=== PATIENT | female | born 1995 | race Two or more races ===

== ENCOUNTER → 2024-02-02 14:59 | Outpatient (REF) | payer OTHER, SELFPAY | LOC: PNTC 14:59 | PROVIDERS: ATTENDING PHYSICIAN Obstetrics & Gynecology | DX: Q79.60 Ehlers-Danlos syndrome, unspecified (principal); O99.111 Other diseases of the blood and blood-forming organs and certain disorders involving the immune mechanism complicating pregnancy, first trimester | CPT/HCPCS: 76805 ==

== ENCOUNTER → 2024-02-29 06:58 | Outpatient (REF) | payer OTHER, SELFPAY | LOC: PNTC 06:58 | PROVIDERS: ATTENDING PHYSICIAN Obstetrics & Gynecology | DX: Q79.60 Ehlers-Danlos syndrome, unspecified (principal) | CPT/HCPCS: 76811; 76817 ==

== ENCOUNTER → 2024-03-28 13:32 | Outpatient (REF) | payer OTHER, SELFPAY | LOC: PNTC 13:32 | PROVIDERS: ATTENDING PHYSICIAN Obstetrics & Gynecology | DX: Q79.60 Ehlers-Danlos syndrome, unspecified (principal); O43.119 Circumvallate placenta, unspecified trimester | CPT/HCPCS: 76816; 76817 ==

== ENCOUNTER → 2024-05-23 06:54 | Outpatient (REF) | payer OTHER, SELFPAY | LOC: PNTC 06:54 | PROVIDERS: ATTENDING PHYSICIAN Obstetrics & Gynecology | DX: O43.119 Circumvallate placenta, unspecified trimester (principal); Q79.60 Ehlers-Danlos syndrome, unspecified | CPT/HCPCS: 76816 ==

== ENCOUNTER → 2024-06-20 07:00 | Outpatient (REF) | payer OTHER, SELFPAY | LOC: PNTC 07:00 | PROVIDERS: ATTENDING PHYSICIAN Obstetrics & Gynecology | DX: Q79.60 Ehlers-Danlos syndrome, unspecified (principal); O43.119 Circumvallate placenta, unspecified trimester | CPT/HCPCS: 76816 ==

== ENCOUNTER 2024-07-10 03:47 | Inpatient (IN) | payer OTHER, SELFPAY ==
[2024-07-10 03:56] VITALS: BMI 27.6
[2024-07-10 04:14] VITALS: BP 125/88
[2024-07-10] MEDS: LR 1000 IV ×2 (06:40→17:42)
[2024-07-10] MEDS: PROTONIX 40 MG PO (07:21)
[2024-07-10 07:43] LABS: % Basophils 0.4 % (0-2); % Immature Granulocytes 0.4 % (0-0.5); % Lymphocytes 20.9 % (20.5-51.1); % Monocytes 5.6 % (1.7-9.3); % Neutrophils 71.7 % (42.2-75.2); Absolute Eosinophils 0.1 10^3/uL (0-0.7); Absolute Lymphocytes 1.6 10^3/uL (1.2-3.4); Absolute Monocytes 0.4 10^3/uL (0.1-0.6); Absolute Neutrophils 5.5 10^3/uL (1.4-6.5); Hematocrit 36.9 % (37.0-47.0); Hemoglobin 12.8 g/dL (12.0-16.0); Mean Corp Hgb Conc. 34.7 g/dL (33.0-37.0); Mean Corpuscular Hgb 28.5 pg (27.0-31.0); Mean Corpuscular Volume 82.2 fL (81.0-99.0); Mean Platelet Volume 10.7 fL (7.4-10.4); Nucleated Red Blood Cells % 0 %; Platelet Count 191 10^3/uL (130-400); Red Blood Cell Count 4.49 10^6/uL (4.20-5.40); Red Cell Dist. Width 13.5 % (11.5-14.5); White Blood Cell Count 7.7 10^3/uL (4.8-10.8)
[2024-07-10] MEDS: SUBLIMAZE 100 MCG EPIDURAL (11:59)
[2024-07-10] MEDS: FENTANYL/BUPIVACAINE 100 EPIDURAL ×2 (12:05→19:02)
[2024-07-10] MEDS: PITOCIN 30 UNITS/NSS 500 ML IV ×2 (13:33→22:39)
[2024-07-10] MEDS: ZOFRAN 4 MG IV (17:42)
[2024-07-11] MEDS: TYLENOL 650 MG PO ×3 (02:38→12:30)
[2024-07-11 05:14] LABS: Hematocrit 31.5 % (37.0-47.0); Hemoglobin 11.1 g/dL (12.0-16.0)
[2024-07-11] MEDS: PRENATAL PLUS 1 TABLET PO (08:39)
[2024-07-11] MEDS: SENOKOT-S 1 TABLET PO (08:39)
[2024-07-11] MEDS: PROTONIX 20 MG PO (09:59)
[2024-07-11 12:21] LABS: Syphilis/T. pallidum Ab Reflex Negative (Negative)
[2024-07-11] MEDS: MOTRIN 600 MG PO ×2 (16:56→23:19)
--- NOTE | 2024-07-12 02:49 | DOWNTIME ---
There was a [email or web address] Downtime on 07/12/2024 from 0100 to 07/12/2023 at 0235 . Downtime documentation of patient's care, including medication administrations, has been reconciled in the electronic record per guidelines. Refer to the
patient's paper chart under the miscellaneous tab to see printed paper medication records and downtime forms.
[2024-07-12] MEDS: PRENATAL PLUS 1 TABLET PO (08:27)
[2024-07-12] MEDS: PROTONIX 20 MG PO (08:27)
[2024-07-12] MEDS: SENOKOT-S 1 TABLET PO (08:28)
[2024-07-12] MEDS: MOTRIN 600 MG PO (08:28)
== END 2024-07-12 15:21 | disposition home or self-care (01) | DRG 807 ==
LOC: LDRP 03:47
PROVIDERS: Obstetrics & Gynecology; ADMITTING PHYSICIAN Obstetrics & Gynecology
PROC: 0UQMXZZ Repair Vulva, External Approach (ICD-10-PCS; 2024-07-10)
PROC: 4A1HXCZ Monitoring of Products of Conception, Cardiac Rate, External Approach (ICD-10-PCS; 2024-07-10)
PROC: 0HQ9XZZ Repair Perineum Skin, External Approach (ICD-10-PCS; 2024-07-10)
PROC: 10E0XZZ Delivery of Products of Conception, External Approach (ICD-10-PCS; 2024-07-10)
PROC: 3E0234Z Introduction of Serum, Toxoid and Vaccine into Muscle, Percutaneous Approach (ICD-10-PCS; 2024-07-12)
DX: O42.02 Full-term premature rupture of membranes, onset of labor within 24 hours of rupture (principal); Z37.0 Single live birth; O70.0 First degree perineal laceration during delivery; O99.344 Other mental disorders complicating childbirth; F41.9 Anxiety disorder, unspecified; O76 Abnormality in fetal heart rate and rhythm complicating labor and delivery; Z3A.39 39 weeks gestation of pregnancy; Z23 Encounter for immunization
CPT/HCPCS: 88307; 59025; 85014; 85018; 85025; 86780; 86850; 86900; 86901

== ENCOUNTER 2024-08-23 06:21 | Day surgery (SDC) | payer OTHER, SELFPAY | END 2024-08-23 10:07 | disposition home or self-care (01) | LOC: GI 06:21 | PROVIDERS: ATTENDING PHYSICIAN Internal Medicine Gastroenterology | DX: K64.8 Other hemorrhoids (principal); R19.4 Change in bowel habit; R13.10 Dysphagia, unspecified; K31.89 Other diseases of stomach and duodenum | CPT/HCPCS: 45380; 43239; 88305; 88342 ==

== ENCOUNTER 2025-02-02 01:09 | Emergency (ER) | payer OTHER, SELFPAY ==
[2025-02-02 01:09] VITALS: BMI 24.0
[2025-02-02 01:13] VITALS: BP 119/78
[2025-02-02 02:03] LABS: Hematocrit 37.5 % (37.0-47.0); Hemoglobin 12.6 g/dL (12.0-16.0); Mean Corp Hgb Conc. 33.6 g/dL (33.0-37.0); Mean Corpuscular Volume 81.3 fL (81.0-99.0); Nucleated Red Blood Cells % 0 %; Platelet Count 196 10^3/uL (130-400); Red Cell Dist. Width 13.4 % (11.5-14.5)
[2025-02-02 02:07] LABS: Urine Character Cloudy (Clear)
[2025-02-02 02:14] LABS: HCG, Serum Qualitative Screen Negative
[2025-02-02 02:34] LABS: Alkaline Phosphatase 81 U/L (38-126); Blood Urea Nitrogen 12 mg/dl (7-17); Carbon Dioxide 27 mmol/L (22-30); Chloride 106 mmol/L (98-107); Estimated Creatinine Clearance 113 ml/min; Glucose 83 mg/dl (70-99); Potassium 3.8 mmol/L (3.5-5.1); Sodium 140 mmol/L (135-145); eGFR > 60.00
[2025-02-02 02:35] LABS: ALT (SGPT) 19 U/L (0-35); AST (SGOT) 20 U/L (14-36); Albumin 4.5 g/dl (3.5-5.0); Calcium 9.4 mg/dl (8.4-10.2); Total Protein 6.7 g/dl (6.3-8.2)
[2025-02-02 02:42] LABS: Urine Squamous Cell >30 /LPF (Few)
[2025-02-02 02:43] LABS: Urine Red Blood Cell >100 /HPF (0-2); Urine White Cell 30-40 /HPF (0-5)
--- NOTE | 2025-02-02 02:59 | ED.GENMED ---
History of Present Illness
General
Chief Complaint: Flank Pain
Source: patient
Exam Limitations: none
Time Seen by Provider: 02/02/25 01:28
Nursing documentation reviewed up to this point in time: agreed with
History of Present Illness
History of Present Illness:
29-year-old female presenting to the emergency department today with concerns of left-sided flank pain over the past hour seem to be abrupt. Has had some intermittent urinary symptoms over the past 2 weeks. Was prescribed antibiotic by her primary
care doctor but has not started this medication yet. Denies any fevers nausea vomiting chest pain or shortness of breath.
Past History
Past History
ED Past Medical History: None
ED Past Surgical History: None
Social History
Tobacco: Non-smoker
Personal:
Living: with family
Employment: Employed
Review of Systems
Review of Systems
Allergies reviewed?: Yes
All Other Systems: ROS reviewed and negative except as documented in HPI and ROS
Phy Exam
Physical Exam
Physical Exam:
GENERAL: Alert , in no apparent distress
EYE: pupils equal and reactive
NECK: Supple, no significant adenopathy.
ENT: o/p clr, mmm.
CARDIAC: Regular rate and rhythm .
LUNGS: Clear breath sounds bilaterally, no acute respiratory distress, no wheezes/rales/rhonchi
ABDOMEN: Soft, without focal tenderness, no r/g, no cvat
NEUROLOGICAL: Alert and oriented, no focal neuro deficits
SKIN: Warm and dry, skin intact.
MUSCULOSKELETAL: No edema, well perfused.
PSYCH: Normal and appropriate interaction.
Course
Orders/Labs/Results
Orders:
Orders
02/02/25 01:19
Test Result ONCE
02/02/25 01:44
CT Abd/pel Without Iv Or Oral Urgent
Comment:
Reason For Exam: left flank pain
02/02/25 01:45
Ketorolac [Toradol] 15 mg IV NOW STA
02/02/25 01:51
Complete Blood Count/With Diff Urgent
Comprehensive Metabolic Panel Urgent
HCG, Serum Qualitative Screen Urgent
Urinalysis Reflex To Culture Urgent
Date Specimen was Collected: 02/02/25
Time Specimen was Collected: :19
Urine Microscopic Reflex Cult Urgent
Urine Culture Urgent
MARKUS Source: U
Specimen Description:
Date Specimen was Collected: 02/02/25
Time Specimen was Collected: :19
Abnormal Lab Results
02/02/25
01:51
Ur Occult Blood Reflex 4+ A
(Negative)
Leukocyte Esterase Rfl 3+ A
(Negative)
Urine RBC >100 A /HPF
(0-2)
Urine WBC (Reflex) 30-40 A /HPF
(0-5)
Urine Bacteria (Reflex) Moderate A
(Negative)
Urine Albumin (Reflex) 3+ A
(Neg - Trace)
02/02/25 01:51
02/02/25 01:51
Vital Signs
Initial and Last Documented VS:
Initial Vital Signs
Temp Pulse Resp BP Pulse Ox
98.1 F 63 20 119/78 97
02/02/25 01:13 02/02/25 01:13 02/02/25 01:13 02/02/25 01:13 02/02/25 01:13
Last Documented Vital Signs
Temp Pulse Resp BP Pulse Ox
98.1 F 63 20 119/78 97
02/02/25 01:13 02/02/25 01:13 02/02/25 01:13 02/02/25 01:13 02/02/25 03:00
MDM/Problems Addressed
MDM/Problems Addressed:
29-year-old female presenting to the emergency department today with concerns of left flank pain starting roughly an hour prior to arrival. Has had urinary frequency and urgency and some burning over the past 2 weeks or so. She was prescribed an
antibiotic but did not start this as of yet. Vital signs normal on arrival. Labs obtained without acute abnormalities. Initial urinalysis with large amount of red blood cells 30-40 white blood cells but greater than 30 squamous epithelial cells.
It was requested the patient keep her repeated urine sample. At this point she claims that she is asymptomatic and would like to leave. It was explained to her that we are unable to interpret her urinalysis concerning it had significant amount of
squamous epithelial cells. It was unclear if she had a UTI or significant red blood cells in her urine sample. It was also explained that we are unable to tell whether this is a kidney stone or not and there was a possibility there could be a
kidney stone or possible infected kidney stone without this information this could be a rapidly progressing illness. She demonstrated understanding but still would like to leave. She understood that this could lead to significant worsening
infection or illness. At time of discharge patient was asymptomatic. Strict return precautions were given.
*Pulse Oximetry
SaO2: 97
Oxygen Mode of Delivery: Room air
Patient hypoxic: no (97)
*Critical Care Note
Total Time (30-74mins, 75-104mins- exclusive of procedures): Not Applicable
ED Attending Note
-
Portions of this chart may have been created with voice recognition software.� Occasional wrong word or��sound alike� substitutions may have occurred due to the inherent limitations of voice recognition software.
Discharge Plan
Departure
Patient Disposition: Home (Routine Discharge)
Date of Disposition: 02/02/25
Time of Disposition: 03:19
Patient with high blood pressure during this ER visit?: No
Condition: Good
Covid-19: Not Applicable
Discharge Problem:
Acute flank pain
Instructions: Flank Pain (DC)
Prescriptions:
No Action
albuterol 90 mcg/actuation Aerosol
90 mcg INHALATION DAILY PRN (Reason: asthma)
prenat.vits,agustin,xid-szkk-jccyn Tablet
1 tab PO DAILY
omeprazole 10 mg Capsule,Delayed Release(Dr/Ec)
10 mg PO DAILY
acetaminophen 325 mg Tablet
650 mg PO Q4HPRN PRN (Reason: mild pain) Qty: 1 0RF
ibuprofen 600 mg Tablet
600 mg PO Q6HPRN PRN (Reason: moderate pain/cramps) Qty: 90 0RF
Referrals:
Satnam White MD [Family Provider, [facility]]
Activity Restrictions/Additional Instructions:
You came to the emergency department today with concerns of flank pain. Here your blood work was reassuring. Your urinalysis was difficult to. Is unclear if you had significant red blood cells or white cells. You need to get this repeated.
Otherwise we were unable to tell whether this was from a kidney stone or not. We did not do a CT scan. You have any recurrence of symptoms please immediately return for reassessment.
Interventions
Interventions:
*Risk Screen - Suicide Last Done: 02/02/25 01:13
*General Assessment Last Done: 02/02/25 01:13
*Neglect/Abuse Screening Last Done: 02/02/25 01:13
*ED- Fall Risk Assessment Last Done: 02/02/25 01:13
*ED COVID-19 Vaccine History Last Done: 02/02/25 01:13
NO-Gyzvnp-Bdnmytghee Assessment Last Done: 02/02/25 01:57
ED-Female Genitourinary Assessment Last Done: 02/02/25 01:57
Discharge Date and Time
Print Language: NIUEAN
== END 2025-02-02 03:22 | disposition home or self-care (01) ==
LOC: EMR 01:09
PROVIDERS: EMERGENCY PHYSICIAN Student in an Organized Health Care Education/Training Program; FAMILY PHYSICIAN Family Medicine
DX: R10.9 Unspecified abdominal pain (principal); R35.0 Frequency of micturition
CPT/HCPCS: 99283; 80053; 81003; 81015; 84703; 85025; 87077; 87086; 87186